=== PATIENT | female | born 1970 | race Hispanic/Latino ===

== ENCOUNTER 2020-10-25 06:59 | Day surgery (SDC) | payer BC ==
[2020-10-19 13:18] LABS: BASOPHILS % (AUTO) 1.1 % (0.0-5.0); EOSINOPHILS % (AUTO) 1.1 % (0.0-8.0); HEMATOCRIT 42.7 % (36-48); LYMPHOCYTES % (AUTO) 35.4 % (21.0-51.0); MEAN CORPUSCULAR HGB CONC 32.8 g/dL (32.0-36.0); MEAN CORPUSCULAR VOLUME 91.4 fL (79-99); MONOCYTES % (AUTO) 7.7 % (3.0-13.0); NEUTROPHILS % (AUTO) 54.4 % (40.0-77.0); PLATELET COUNT (AUTO) 305 K/uL (130-400); RED BLOOD CELL COUNT(AUTO) 4.67 MIL/uL (4.00-5.50); RED CELL DISTRIBUTION WIDTH 12.1 % (11.0-15.5); WHITE BLOOD COUNT (AUTO) 6.5 K/uL (4.8-10.8)
[2020-10-23 15:45] VITALS: BP 147/68
[~2020-10-25] VITALS: Ht 156.2 cm; Wt 79.0 kg
[2020-10-25] VITALS (17 sets, daily range): BP systolic 125–154; BP diastolic 59–80
[~2020-10-25 06:59] MED LIST: CETI5TAB12 PO; LACTATED RINGERS 1000ML 1,000 ML IV SCH
[2020-10-25] MEDS ORDERED: LIDOCAINE PF 2% 5ML ABBOJECT ONE (08:53)
[2020-10-25] MEDS ORDERED: DEXAMETHASONE SOD PHOSPHATE 10MG/ML 1ML VIAL ONE (08:53)
[2020-10-25] MEDS ORDERED: SUCCINYLCHOLINE 200MG/10ML SYR ONE (08:53)
[2020-10-25] MEDS ORDERED: MIDAZOLAM HCL 1 MG/ML 2ML VIAL ONE (08:53)
[2020-10-25] MEDS ORDERED: ONDANSETRON HCL 4 MG/2 ML VIAL ONE (08:54)
[2020-10-25] MEDS ORDERED: PROPOFOL 10 MG/ML 20ML VIAL IV ONE (08:54)
[2020-10-25] MEDS ORDERED: FENTANYL CITRATE PF 50 MCG/1 ML 2ML VIAL ONE (08:54)
[2020-10-25] MEDS ORDERED: MEPERIDINE-PF 25 MG/ML SYG ONE (08:56)
== END 2020-10-25 11:10 | disposition home or self-care (01) ==
LOC: DAH 06:59
PROVIDERS: ATTEND Specialist
DX: N95.0 Postmenopausal bleeding (principal); Z20.822 Contact with and (suspected) exposure to COVID-19; N88.8 Other specified noninflammatory disorders of cervix uteri; E66.9 Obesity, unspecified; Z88.0 Allergy status to penicillin; Z98.890 Other specified postprocedural states; Z98.891 History of uterine scar from previous surgery; Z90.49 Acquired absence of other specified parts of digestive tract
CPT/HCPCS: 36415; 58120; 85025; A4215; A4221; A4222; A4223; A4351; A4663; A6260; C9803; J0330; J1100; J2001; J2175; J2250; J2405; J2704; J3010; J7120; U0003

== ENCOUNTER 2021-07-02 07:23 | Day surgery (SDC) | payer BC ==
[~2021-07-02] VITALS: Ht 154.9 cm; Wt 78.9 kg
[2021-07-02] VITALS (13 sets, daily range): BP systolic 119–149; BP diastolic 64–93
[~2021-07-02 07:23] MED LIST changes: -LACTATED RINGERS 1000ML 1,000 ML IV SCH
[2021-07-02 08:36] LABS: BASOPHILS % (AUTO) 1.1 % (0.0-5.0); EOSINOPHILS % (AUTO) 2.1 % (0.0-8.0); HEMATOCRIT 40.7 % (36-48); LYMPHOCYTES % (AUTO) 33.8 % (21.0-51.0); MEAN CORPUSCULAR HEMOGLOBIN 30.6 pg (27.0-33.0); MEAN CORPUSCULAR HGB CONC 32.9 g/dL (32.0-36.0); MEAN CORPUSCULAR VOLUME 92.9 fL (79-99); MONOCYTES % (AUTO) 8.8 % (3.0-13.0); PLATELET COUNT (AUTO) 281 K/uL (130-400); RED BLOOD CELL COUNT(AUTO) 4.38 MIL/uL (4.00-5.50); RED CELL DISTRIBUTION WIDTH 12.6 % (11.0-15.5); WHITE BLOOD COUNT (AUTO) 5.2 K/uL (4.8-10.8)
[2021-07-02 08:47] LABS: CREATININE 0.7 mg/dL (0.5-1.5); POTASSIUM 4.4 mmol/L (3.5-5.1)
[2021-07-02] MEDS ORDERED: LACTATED RINGERS 1000ML 1,000 ML IV ONE (08:51)
[2021-07-02] MEDS ORDERED: MVIT PO (08:56)
[2021-07-02] MEDS: D5W IV SCH ×2 (09:00→10:10)
[2021-07-02] MEDS: CLINDAMYCIN IV SCH ×2 (09:00→10:10)
[2021-07-02] MEDS ORDERED: 0.9%NACL 1000ML 1,000 ML IV SCH (09:00)
[2021-07-02] MEDS ORDERED: DEXAMETHASONE SOD PHOSPHATE 10MG/ML 1ML VIAL ONE (09:05)
[2021-07-02] MEDS ORDERED: SUCCINYLCHOLINE CHLORIDE 20 MG/ML 10 ML VIAL ONE (09:05)
[2021-07-02] MEDS ORDERED: LIDOCAINE PF 100MG/5ML (2%) SYRINGE 5ML ONE (09:06)
[2021-07-02] MEDS ORDERED: ONDANSETRON 4MG INJ ONE (09:06)
[2021-07-02] MEDS ORDERED: MIDAZOLAM HCL 1 MG/ML 2ML VIAL ONE (09:06)
[2021-07-02] MEDS ORDERED: ROCURONIUM 10MG/1ML SYR 10 MG/ML ML ONE (09:07)
[2021-07-02] MEDS ORDERED: FENTANYL CITRATE PF 50 MCG/1 ML 2ML VIAL ONE (09:07)
[2021-07-02] MEDS ORDERED: PROPOFOL 10 MG/ML 20ML VIAL IV ONE (09:07)
[2021-07-02] MEDS ORDERED: NEOSTIGMINE 5MG/5ML SYR IV ONE (09:07)
[2021-07-02] MEDS ORDERED: GLYCOPYRROLATE 1 MG/5 ML SYRINGE ONE (09:07)
[2021-07-02] MEDS ORDERED: BUPIVACAINE/PF 0.5% 30ML VIAL ONE (10:39)
[2021-07-02] MEDS ORDERED: NEOMY SULF/BACITRAC ZN/POLY OINT 30GM TUBE TP ONE (10:51)
== END 2021-07-02 12:30 | disposition home or self-care (01) ==
LOC: DAH 07:23
PROVIDERS: ATTEND Surgery
DX: L72.3 Sebaceous cyst (principal); E66.9 Obesity, unspecified; Z88.0 Allergy status to penicillin; Z90.49 Acquired absence of other specified parts of digestive tract; Z20.822 Contact with and (suspected) exposure to COVID-19
CPT/HCPCS: 11406; 36415; 80048; 84703; 85025; 87635; A4215; A4221; A4222; A4223; A4606; A4663; A4930; J0330; J1100; J2001; J2250; J2405; J2704; J2710; J3010; J3490 ×3; J7120

== ENCOUNTER 2021-07-09 07:02 | Day surgery (SDC) | payer BC ==
[~2021-07-09] VITALS: Ht 165.1 cm; Wt 78.5 kg
[2021-07-09] VITALS (7 sets, daily range): BP systolic 110–135; BP diastolic 60–76
[~2021-07-09 07:02] MED LIST changes: +MVIT PO
[2021-07-09] MEDS ORDERED: 0.9%NACL 1000ML 1,000 ML IV ONE (07:14)
[2021-07-09] MEDS ORDERED: PROPOFOL 10 MG/ML 20ML VIAL IV ONE (08:04)
[2021-07-09] MEDS ORDERED: EPHEDRINE SULFATE 50 MG/ML AMPULE ONE (08:15)
== END 2021-07-09 09:10 | disposition home or self-care (01) ==
LOC: DAH 07:02 → ENDO 07:02
PROVIDERS: ATTEND Surgery
DX: Z12.11 Encounter for screening for malignant neoplasm of colon (principal); L72.3 Sebaceous cyst; Z79.899 Other long term (current) drug therapy; Z98.890 Other specified postprocedural states; Z88.0 Allergy status to penicillin; Z88.8 Allergy status to other drugs, medicaments and biological substances; Z98.891 History of uterine scar from previous surgery; Z90.49 Acquired absence of other specified parts of digestive tract
CPT/HCPCS: 45378; A4215 ×2; A4221; A4222; A4223; A4606; A4620; A4663; J2704; J3490; J7030

== ENCOUNTER 2021-07-11 21:10 | Emergency (ER) | payer BC ==
[~2021-07-11] VITALS: Ht 154.9 cm; Wt 78.0 kg
[2021-07-11 21:58] LABS: HEMATOCRIT 38.6 % (36-48); MEAN CORPUSCULAR HGB CONC 33.9 g/dL (32.0-36.0); MEAN CORPUSCULAR VOLUME 91.5 fL (79-99); PLATELET COUNT (AUTO) 308 K/uL (130-400); RED BLOOD CELL COUNT(AUTO) 4.22 MIL/uL (4.00-5.50); RED CELL DISTRIBUTION WIDTH 12.8 % (11.0-15.5); WHITE BLOOD COUNT (AUTO) 8.4 K/uL (4.8-10.8)
[2021-07-11 22:38] LABS: EOSINOPHILS % (MANUAL) 4 % (1-6); LYMPHOCYTES % (MANUAL) 33 % (22-44); MONOCYTES % (MANUAL) 3 % (2-9); SEGMENTED NEUTROPHILS % 60 % (40-70)
[2021-07-11 22:39] LABS: MAN.DIFF COMMENT-IMPRESSION MANUAL DIFFERENTIAL; PLATELET MORPHOLOGY COMMENT ADEQUATE
[2021-07-11 22:51] VITALS: BP 134/57
== END 2021-07-11 22:57 | disposition home or self-care (01) ==
LOC: EDH 21:10
DX: T81.31XA Disruption of external operation (surgical) wound, not elsewhere classified, initial encounter (principal); Z88.0 Allergy status to penicillin; Y84.8 Other medical procedures as the cause of abnormal reaction of the patient, or of later complication, without mention of misadventure at the time of the procedure; Y92.89 Other specified places as the place of occurrence of the external cause
CPT/HCPCS: 36415; 85025

== ENCOUNTER 2022-02-16 21:37 | Emergency (ER) | payer BC ==
[~2022-02-16] VITALS: Ht 154.9 cm; Wt 72.6 kg
[2022-02-16 22:55] VITALS: BP 126/54
[2022-02-16] MEDS ORDERED: IBUP-1493 PO (23:11)
[2022-02-16] MEDS ORDERED: IBUPROFEN 800 MG TAB PO ONE (23:30)
== END 2022-02-16 23:20 | disposition left against medical advice (07) ==
LOC: EDH 21:37
DX: S60.221A Contusion of right hand, initial encounter (principal); Z88.0 Allergy status to penicillin; Z79.1 Long term (current) use of non-steroidal anti-inflammatories (NSAID); W22.8XXA Striking against or struck by other objects, initial encounter; Y93.89 Activity, other specified; Y92.89 Other specified places as the place of occurrence of the external cause; Y99.8 Other external cause status
CPT/HCPCS: 73130